=== PATIENT | female | born 1945 | race Caucasian/White ===

== ENCOUNTER 2017-12-11 11:35 | Inpatient (IN) | payer MEDICARE, BC ==
[~2017-12-11] VITALS: Ht 177.8 cm; Wt 65.0 kg
[2017-12-11] VITALS (10 sets, daily range): BP systolic 17–118; BP diastolic 36–72
[~2017-12-11 11:35] MED LIST: CALC-642 PO; CHOL2000 PO; FISH1CAP15 PO; LUTE20CA PO; MELO-82 PO; MULT-785 PO; NORT25CA87 PO; VITC500T PO
[2017-12-11 11:57] LABS: BASOPHILS % (AUTO) 0.2 % (0-1); EOSINOPHILS % (AUTO) 0.7 % (0-6); HEMATOCRIT 41.1 % (35.0-45.0); LYMPHOCYTES # (AUTO) 1.5 X10'3 (1.1-4.8); LYMPHOCYTES % (AUTO) 26.2 % (21-51); MEAN CORPUSCULAR HEMOGLOBIN 33.2 PG (27.0-31.0); MEAN CORPUSCULAR HGB CONC 34.1 % (33.0-36.5); MEAN CORPUSCULAR VOLUME 97.2 FL (78-98); MEAN PLATELET VOLUME 7.5 FL (7.4-10.4); MONOCYTES # (AUTO) 0.4 X10'3 (0-0.9); MONOCYTES % (AUTO) 6.7 % (2-12); NEUTROPHILS # (AUTO) 3.7 X10'3 (1.8-7.7); NEUTROPHILS % (AUTO) 66.2 % (42-75); PLATELET COUNT 300 X10'3 (140-440); RED BLOOD COUNT 4.23 X10'6 (4.20-5.60); RED CELL DISTRIBUTION WIDTH 13.1 % (11.5-14.5); WHITE BLOOD COUNT 5.6 X10'3 (4.5-11.0)
[2017-12-11 12:06] LABS: INR 1.1 INR; PARTIAL THROMBOPLASTIN TIME 27 SECONDS (22-32); PROTHROMBIN TIME 11.1 SECONDS (9.0-12.0)
[2017-12-11 12:11] LABS: ALANINE AMINOTRANSFERASE 32 U/L (12-78); ALBUMIN 3.8 G/DL (3.4-5.0); ALKALINE PHOSPHATASE 74 IU/L (46-116); ANION GAP 15 (8-16); ASPARTATE AMINO TRANSFERASE 36 U/L (10-37); BILIRUBIN,TOTAL 0.4 MG/DL (0.1-1.0); BLOOD UREA NITROGEN 12 MG/DL (7-18); BUN/CREATININE RATIO 14.1 (6.6-38.0); CALCIUM 8.6 MG/DL (8.5-10.1); CHLORIDE 100 MMOL/L (99-107); CREATININE 0.85 MG/DL (0.40-0.90); GLUCOSE 98 MG/DL (70-104); POTASSIUM 3.5 MMOL/L (3.5-5.1); SODIUM 140 MMOL/L (135-145); TOTAL CARBON DIOXIDE 25.5 MMOL/L (24-32); TOTAL PROTEIN 7.5 G/DL (6.4-8.2); eGFR 66 ML/MIN
[2017-12-11] MEDS ORDERED: diltiazem-D5W 125mg/125ml 125 ML IV ONE ×2 (13:35→15:14)
[2017-12-11] MEDS ORDERED: normal saline 1000ml 1,000 ML IV ONE (13:35)
[2017-12-11] MEDS ORDERED: aspirin 325mg tablet PO ONE (13:45)
[2017-12-11] MEDS ORDERED: potassium Cl 40MEQ/NS 500ml 500 ML IV PRN ×2 (14:30)
[2017-12-11] MEDS ORDERED: potassium Cl 20 mEq SR tablet PO PRN ×2 (14:30)
[2017-12-11] MEDS ORDERED: magnesium Cl slow-release 64mg tablet PO PRN (14:30)
[2017-12-11] MEDS ORDERED: magnesium hydroxide 30ml (MOM) UD suspension PO PRN (14:30)
[2017-12-11] MEDS ORDERED: magnesium 2GM in 50ml NS 50 ML IV PRN (14:30)
[2017-12-11] MEDS ORDERED: mag hydrox/Alum hydrox/simeth 30ml oral suspension PO PRN (14:30)
[2017-12-11] MEDS ORDERED: bisacodyl 10mg suppository rectal RC PRN (14:30)
[2017-12-11] MEDS ORDERED: acetaminophen 325mg tablet PO PRN (14:30)
[2017-12-11] MEDS ORDERED: magnesium 4gm in 100ml NS 100 ML IV PRN (14:30)
[2017-12-11] MEDS ORDERED: ondansetron/PF 4mg/2ml inj IV PRN (14:30)
[2017-12-11] MEDS ORDERED: diltiazem-D5W 125mg/125ml 125 ML IV PRN ×2 (14:34→15:16)
[2017-12-11] MEDS: potassium Cl 20mEq in NS 1,000 ML IV SCH (16:05)
[2017-12-11] MEDS: aspirin 325mg tablet, delayed-release (Ecotrin) PO SCH (16:05)
[2017-12-11] MEDS: docusate sod 100mg capsule PO SCH (20:02)
[2017-12-11] MEDS: multivitamins, therapeutics tablet PO SCH (20:02)
[2017-12-11] MEDS ORDERED: nortriptyline 25mg capsule PO SCH (21:00)
[2017-12-12 00:45] LABS: ALBUMIN 2.8 G/DL (3.4-5.0); ANION GAP 7 (8-16); BLOOD UREA NITROGEN 18 MG/DL (7-18); BUN/CREATININE RATIO 20.9 (6.6-38.0); CALCIUM 8.4 MG/DL (8.5-10.1); CHLORIDE 105 MMOL/L (99-107); CREATININE 0.86 MG/DL (0.40-0.90); GLUCOSE 90 MG/DL (70-104); MAGNESIUM 2.2 MG/DL (1.5-2.4); POTASSIUM 3.6 MMOL/L (3.5-5.1); SODIUM 139 MMOL/L (135-145); TOTAL CARBON DIOXIDE 26.6 MMOL/L (24-32); eGFR 65 ML/MIN
[2017-12-12] MEDS: potassium Cl 20mEq in NS 1,000 ML IV SCH (01:07)
[2017-12-12 03:00] VITALS: BP 95/52
[2017-12-12 06:00] VITALS: BP 114/66
[2017-12-12] MEDS: docusate sod 100mg capsule PO SCH (07:21)
[2017-12-12] MEDS: multivitamins, therapeutics tablet PO SCH (07:21)
[2017-12-12] MEDS: aspirin 325mg tablet, delayed-release (Ecotrin) PO SCH (07:22)
[2017-12-12] MEDS ORDERED: ascorbic acid 500mg tablet PO SCH (08:00)
[2017-12-12] MEDS ORDERED: EPA PO SCH (08:00)
[2017-12-12] MEDS ORDERED: vitamin D (cholecalciferol) 1,000 unit tablet PO SCH (08:00)
[2017-12-12] MEDS ORDERED: FISH OIL PO SCH (08:00)
[2017-12-12] MEDS ORDERED: CALCIUM CARBONATE 1000 MG PO SCH (08:00)
[2017-12-12] MEDS ORDERED: LUTEIN 20MG PO SCH (08:00)
[2017-12-12] MEDS ORDERED: MELOXICAM 7.5 MG PO SCH (08:00)
[2017-12-12] MEDS ORDERED: OMEGA-3/DHA/EPA/FISH OIL 1 EACH CAPSULE.DR PO SCH (08:00)
[2017-12-12] MEDS ORDERED: naproxen 375mg tablet PO SCH (08:00)
[2017-12-12] MEDS ORDERED: enoxaparin 40mg/0.4ml syringe SUBCUT SCH (08:00)
[2017-12-12] MEDS ORDERED: DHA PO SCH (08:00)
[2017-12-12] MEDS ORDERED: K and/or MAG REPLACEMENT MC SCH (08:00)
[2017-12-12] MEDS ORDERED: calcium carbonate 500mg tablet PO SCH (08:00)
[2017-12-12] MEDS ORDERED: non-formulary drug (Cholecalciferol (Vitamin D3) (Vitamin D-3) 2,000 UNIT) PO SCH (08:00)
[2017-12-12] MEDS ORDERED: digoxin 125mcg (0.125mg) tablet PO SCH (10:35)
[2017-12-12] MEDS ORDERED: DIGO125T5 PO (10:37)
[2017-12-12] MEDS ORDERED: APIX5TAB3 PO (10:37)
[2017-12-12 11:00] VITALS: BP 112/76
[2017-12-12] MEDS ORDERED: diltiazem-D5W 125mg/125ml 125 ML IV PRN (15:16)
[2017-12-12] MEDS ORDERED: apixaban 5mg tablet PO SCH (20:00)
== END 2017-12-12 11:47 | disposition home or self-care (01) | DRG 310 ==
LOC: ER 11:35 → ED HOLD 13:32 → PCU 3S 14:53
PROVIDERS: ADMIT Internal Medicine; ATTEND Internal Medicine
DX: I48.91 Unspecified atrial fibrillation (principal); I95.9 Hypotension, unspecified; K59.09 Other constipation; M19.90 Unspecified osteoarthritis, unspecified site; Z79.82 Long term (current) use of aspirin; Z79.899 Other long term (current) drug therapy; Z79.01 Long term (current) use of anticoagulants; Z87.891 Personal history of nicotine dependence
CPT/HCPCS: 36415; 71045; 80048; 80053; 83735; 84439; 84443; 84484; 85025; 85610; 85730; 93005; 93306; 99285; J1650; J3490; J7030